=== PATIENT | male | born 1975 ===

== ENCOUNTER 2017-04-26 13:04 | Inpatient (IN) | payer OTHER ==
[2017-04-26] MEDS ORDERED: HYDROmorphone 0.5 mg/0.5 ml ISec ONE (13:12)
[2017-04-26] MEDS ORDERED: HYDROmorphone 1 mg/ml ISec IVP STA (13:20)
[2017-04-26] MEDS ORDERED: Tdap Vaccine 0.5 ml Vial (10-64 yrs) IM ONE ×2 (13:21→13:29)
--- NOTE | 2017-04-26 13:25 | C.PDOC ---
History Of Present Illness 42 year old male presents to the ER for evaluation of left finger injury. 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 Denies any numbness or tingling but states he cannot move the finger. Patient also reports aching in his lower back, and states he may have wrenched it when he grabbed the ladder. Did not fall or hit his head. - HPI Time Seen by Provider: 04/26/17 13:09 Chief Complaint (Nursing): Trauma History Per: Patient History/Exam Limitations: no limitations Injury Occurred (Timing): Just Before Arrival Location Of Injury: Left: Hand, Posterior: Back (lower) Severity: Moderate Past Medical History Reviewed: Historical Data, Nursing Documentation, Vital Signs Vital Signs: Last Vital Signs Temp 97.6 F 04/26/17 15:15 Pulse 74 04/26/17 15:15 Resp 14 04/26/17 15:15 BP 121/57 L 04/26/17 15:15 Pulse Ox 96 04/26/17 15:15 - Medical History PMH: No Chronic Diseases Surgical History: No Surg Hx Family History: States: No Known Family Hx - Social History Hx Tobacco Use: Yes Hx Alcohol Use: No Hx Substance Use: No - Immunization History Hx Tetanus Toxoid Vaccination: No Hx Influenza Vaccination: No Hx Pneumococcal Vaccination: No Review Of Systems Cardiovascular: Negative for: Chest Pain Respiratory: Negative for: Shortness of Breath Gastrointestinal: Negative for: Nausea, Vomiting, Abdominal Pain Musculoskeletal: Positive for: Back Pain, Other (Left finger injury) Neurological: Positive for: Weakness (cannot move finger). Negative for: Numbness (or tingling), Other (head trauma) Physical Exam - Physical Exam Appears: Non-toxic, No Acute Distress Skin: Normal Color, Warm, Dry Head: Atraumatic, Normacephalic Eye(s): bilateral: Normal Inspection, PERRL, EOMI Oral Mucosa: Moist Neck: Normal ROM, Supple Chest: Symmetrical Cardiovascular: Rhythm Regular Respiratory: Normal Breath Sounds, No Accessory Muscle Use Gastrointestinal/Abdominal: Normal Exam, Soft, No Tenderness Back: Normal Inspection, No Vertebral Tenderness, No Paraspinal Tenderness Extremity: Other (Left 5th digit with open wound over the PIP joint, w/ big flap and extension into the joint) Neurological/Psych: Oriented x3, Normal Speech ED Course And Treatment - Laboratory Results Result Diagrams: 04/26/17 14:14 04/26/17 14:14 Lab Interpretation: Normal ECG: Interpreted By Me ECG Rhythm: Sinus Rhythm ECG Interpretation: Normal O2 Sat by Pulse Oximetry: 97 Pulse Ox Interpretation: Normal - Radiology CXR: Interpreted by Me CXR Interpretation: Yes: No Acute Disease Reevaluation Time: 15:24 Reassessment Condition: Improved - Physician Consult Information Time Consulting Physician Contacted: 14:21 Physician Contacted: Josué Claire Outcome Of Conversation: He will see patient and take to OR for clean out and repair. Medical Decision Making Medical Decision Making: Time: 13:20 Initial Plan: * Tdap vaccine given * Dilaudid 1mg IVP * X-Ray of Left 5th Digit * Ancef IVPB * Paged hand specialist on-call Disposition - Disposition Disposition: HOSPITALIZED Disposition Time: 15:24 Condition: STABLE - POA Present On Arrival: None - Clinical Impression Clinical Impression: Open finger fracture - Scribe Statement The provider has reviewed the documentation as recorded by the Ezio Arroyo Provider Attestation: All medical record entries made by the Ezio were at my direction and personally dictated by me. I have reviewed the chart and agree that the record accurately reflects my personal performance of the history, physical exam, medical decision making, and the department course for this patient. I have also personally directed, reviewed, and agree with the discharge instructions and disposition.
--- NOTE | 2017-04-26 13:50 | RAD ---
Left 5th digit radiographs Comparison: None available Indication: Trauma Findings: Soft tissue swelling. Displaced comminuted fracture of the phalanx involving the distal aspect of the proximal 5th and proximal aspect of the mid digits. Suboptimal positioning presumably due to patient condition. The remainder the visualized osseous structures appear intact. Please note external artifact consistent with patient's watch obscures evaluation of the wrist/ distal radius and ulna. Impression: Soft tissue swelling. Displaced comminuted fracture of the 5th phalanx involving the distal aspect of the proximal 5th and proximal aspect of the mid 5th digit. Suboptimal positioning presumably due to patient condition.
[2017-04-26 14:19] LABS: BASO # 0.1 K/uL (0.0-0.2); BASO % 1.1 % (0.0-2.0); EOS # 0.2 K/uL (0.0-0.7); LYMPH # 2.8 K/uL (1.0-4.3); LYMPH % 34.1 % (20.0-40.0); MEAN CELL VOLUME 88.9 fL (80.0-94.0); MEAN CORPUSCULAR HEMOGLOBIN 30.1 pg (27.0-31.0); MEAN CORPUSCULAR HGB CONC 33.8 g/dL (33.0-37.0); MEAN PLATELET VOLUME 8.4 fL (7.2-11.7); MONO # 0.6 K/uL (0.0-0.8); NEUT # 4.6 K/uL (1.8-7.0); NEUT % 55.8 % (50.0-75.0); RBC 4.65 Mil/uL (4.40-5.90); RED CELL DISTRIBUTION WIDTH 13.1 % (11.5-14.5); WHITE BLOOD COUNT 8.3 K/uL (4.8-10.8)
[2017-04-26 14:26] LABS: PROTHROMBIN TIME 11.3 SECONDS (9.7-12.2)
[2017-04-26 14:41] LABS: ALB/GLOB RATIO 1.3 (1.0-2.1); ALBUMIN 4.6 g/dL (3.5-5.0); ALT/SGPT 32 U/L (21-72); AST/SGOT 23 U/L (17-59); BLOOD UREA NITROGEN 14 mg/dL (9-20); CALCIUM 9.4 mg/dl (8.6-10.4); GFR AFRICAN-AMERICAN > 60; GFR NON-AFRICAN AMERICAN > 60
--- NOTE | 2017-04-26 15:07 | RAD ---
HISTORY: pre-op COMPARISON: Chest x-ray performed 12/04/16 TECHNIQUE: Chest, one view. FINDINGS: Examination limited by habitus and hypoinflation. LUNGS: Mild bibasilar atelectasis. Please note that chest x-ray has limited sensitivity for the detection of pulmonary masses. PLEURA: No significant pleural effusion identified. No definite pneumothorax . CARDIOVASCULAR: Heart size appears within normal limits. OSSEOUS STRUCTURES: No acute osseous abnormality identified. VISUALIZED UPPER ABDOMEN: Unremarkable. OTHER FINDINGS: None. IMPRESSION: Hypoinflation. Mild bibasilar atelectasis.
[2017-04-26] MEDS ORDERED: Propofol 10 mg/ml Inj (20 ML) ONE ×2 (16:35→19:04)
[2017-04-26] MEDS ORDERED: Midazolam 2 MG/2 ML VIAL ONE (16:35)
[2017-04-26] MEDS ORDERED: HYDROmorphone 0.5 mg/0.5 ml ISec IVP PRN (16:53)
[2017-04-26] MEDS ORDERED: Bacitracin 50,000 UNIT in Sodium Chloride 0.9% Irrig 1,000 ML IR SCH (17:25)
[2017-04-26] MEDS ORDERED: Lidocaine 1% Inj (20ml) ONE (17:33)
[2017-04-26] MEDS ORDERED: ceFAZolin IV 2 gm in Dextrose 2 GM/50 ML BAG IVPB ONE (17:33)
[2017-04-26] MEDS ORDERED: Bupivacaine HCl 0.25% PF (10 ml) Inj ONE (17:33)
[2017-04-26] MEDS ORDERED: ceFAZolin IV 1 gm in Dextrose 2 GM/100 ML BAG IVPB ONE (17:35)
[2017-04-26] MEDS ORDERED: Neostigmine Methylsulfate 3mg/3ml Syringe IV ONE (19:29)
[2017-04-26] MEDS ORDERED: Lactated Ringer's 1,000 ML IV ONE (19:30)
--- NOTE | 2017-04-26 19:34 | PCM.SURG1 ---
Surgeon's Initial Post Op Note - Surgeon's Notes Surgeon: isidro Atm Technician: Josseline Type of Anesthesia: General Endo Pre-Operative Diagnosis: open L 5th digit PIP fracture Operative Findings: ORIF, debridement, extensor tendon repair Post-Operative Diagnosis: same Operation Performed: ORIF Specimen/Specimens Removed: none Estimated Blood Loss: EBL {In ML}: 10 Date of Surgery/Procedure: 04/26/17 Time of Surgery/Procedure: 17:00
[2017-04-26] MEDS ORDERED: Pneumococcal 23-Valent Vaccine IM ONE (21:36)
[2017-04-26 22:00] VITALS: BP 118/71; PULSE 75; RESP 20; TEMP 97.6; O2SAT 98
--- NOTE | 2017-04-27 09:09 | RAD ---
PROCEDURE: Left Hand Radiographs. HISTORY: s/p ORIF 5th digit COMPARISON: 04/26/2017 FINDINGS: BONES: Normal. No fracturePedis post ORIF comminuted fracture distal 5th proximal phalanx. This radiographic examination is limited and fails to include a frontal view of the 5th digit. Three small pins and a wire are seen to traverse the fracture site. The fracture of the proximal aspect of the middle phalanx has not been surgically repaired. . JOINTS: Normal. No osteoarthritic changes. SOFT TISSUES: Normal. OTHER FINDINGS: None. IMPRESSION: ORIF comminuted fracture distal aspect 5th proximal phalanx.
--- NOTE | 2017-04-27 21:08 | CARD ---
APPROVED REPORT EKG Measurement Heart [id number] <Conclusion> Normal sinus rhythm Early repolarization Normal ECG
--- NOTE | 2017-04-28 23:25 | CON ---
DATE: 04/26/2017. REASON FOR CONSULTATION: Left fifth digit open fracture. HISTORY OF PRESENT ILLNESS: This is a 42-year-old right-hand dominant male who presented to emergency room with trauma to the fifth digit. 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 The patient had gross deformity open wound of the fifth digit and presents to [facility] emergency room for evaluation. The patient was seen in the emergency room and was diagnosed with open fracture of his proximal interphalangeal joint with exposure of bone. The patient was indicated for emergent surgery for wound debridement and fixation. PAST MEDICAL HISTORY: None. PAST SURGICAL HISTORY: None. PHYSICAL EXAMINATION: EXTREMITIES: Left fifth digit, there is open wound in the dorsum of the finger and exposure of the nail in the proximal phalanx. There is hyperflexion deformity at the PIP joint with bone exposed, loss skin tissue on the dorsum of the digit. The patient has good capillary refill. There is also wound contamination with foreign body. X-rays of the hand digit was seen and reviewed show intraarticular fracture of the proximal phalanx at the joint level with displacement and multifragmented fracture. ASSESSMENT: Left fifth digit intraarticular open proximal interphalangeal joint fracture and dislocation. PLAN: Discussion with the patient, recommended emergent surgery for wound washout with debridement, removal of foreign body and repair of injured structures. Risks and benefits were explained. This included but not limited to bleeding, infection, tendon, nerve and vessel injury, instability, chronic pain, potential need for additional surgery in the future. The patient understood the above risks and elected to proceed. He was taken emergently to the operating room for surgery. Josué Claire MD [facility]
--- NOTE | 2017-04-29 00:52 | OP ---
PROCEDURE DATE: 04/26/2017. SURGEON: Josué Claire MD MACHINE ADJUSTER HELPER: resident Suzanne. PREOPERATIVE DIAGNOSES: 1. Left fifth digit open intraarticular proximal phalanx fracture. 2. Left fifth digit open wound, loss of skin. 3. Left fifth digit extensor tendon rupture. POSTOPERATIVE DIAGNOSES: 1. Left fifth digit open intraarticular proximal phalanx fracture. 2. Left fifth digit open wound, loss of skin. 3. Left fifth digit rupture of the central slip of the extensor tendon. 4. Left fifth digit contaminated wound. PROCEDURES: 1. Left fifth digit open reduction internal fixation of proximal interphalangeal joint with Snow wires [id number]. 2. Left fifth digit dorsal rotational skin flap closure, 69845. 3. Left fifth digit central slip repair of extensor tendon, 45490. 4. Left fifth digit open fracture wound debridement including skin, fascia and bone, 06213. 5. Left fifth digit penetrating wound exploration, . ANESTHESIA: General. SPECIMENS: None. BLOOD LOSS: Minimal. COMPLICATIONS: None. DISPOSITION: Stable to recovery room. 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 The patient was indicated for the above surgery. DESCRIPTION OF PROCEDURE: Informed consent was obtained. The patient was brought to the operating room and placed supine on the operating room table. A general anesthesia was given and prophylactic antibiotic. A well padded nonsterile tourniquet was placed on patient's left upper extremity. The entire extremity was then prepped and draped in standard surgical fashion. Time-out was performed. Digital nerve block performed The penetrating wound was explored, skin flaps were raised over the dorsum of the finger. Blunt dissection performed. There was disruption of the extensor tendon with the central slip partial avulsion. The PIP joint was exposed and showed multiple comminuted intra articular fracture fragments with a total of 4 pieces. Also a fracture fragement through phalangeal neck was identified. The fracture fragments were debrided with currette and irrigation.. The soft tissue including the skin flaps, the fascia and tendon were also debrided with curette, rongeur and irrigation. Foreign bodies were removed.The wound was further explored. Neurovascular bundles were identified and remained intact. After thorough debridement and irrigation with Bacitracin solution, primary reduction of the intraarticular fracture fragements was obtained The bone pieces were held together provisionally, directly reduced and then internally fixated with 2.8 Snow wire. The wires were cut short and burried in the bony cortex. The condylar fracture piece was fixated to the shaft of the phalanx again under direct visualization and held in place with 3.5 mm Snow wire. The wire was bent and cut short outside the skin Fluoroscopic images confirmed well aligned, reduced proximal phalanx fracture with acceptable alignment of the congruent PIP joint. Work was then begun on repairing extensor tendon central slip tear. The central slip was repaired back to its insertion using multiple 4-0 Vicryl sutures. The tendon also had a longitudinal split. The split was repaired with 4-0 Vicryl sutures. The joint was closed with local tissue. The wound was then again copiously irrigated. After this, the skin flaps were evaluated. There was loss of skin on the dorsum of the finger. Thus, a rotational skin flap was performed, which aided in covering the exposed bone and tendon. Two rotational skin flaps were performed and the skin was closed with 4-0 nylon interrupted sutures. Prior to the closure of the skin, tourniquet was deflated and hemostasis was obtained with bipolar cautery. Sterile dressing was then applied consisting of Xeroform, 4 x 4, and digital plaster splint was then applied. The patient tolerated the procedure well, was returned to the recovery room in excellent condition. Josué Claire MD [facility]
== END 2017-04-26 22:10 | disposition home or self-care (01) | DRG 464 ==
LOC: C.ER 13:04 → C.9E 16:01 → C.6T 20:06
PROVIDERS: ADMIT Orthopaedic Surgery; ATTEND Orthopaedic Surgery
PROC: 0HXGXZZ Transfer Left Hand Skin, External Approach (ICD-10-PCS; 2017-04-26)
PROC: 0LQ80ZZ Repair Left Hand Tendon, Open Approach (ICD-10-PCS; 2017-04-26)
PROC: 0PBV0ZZ Excision of Left Finger Phalanx, Open Approach (ICD-10-PCS; 2017-04-26)
PROC: 0PSV04Z Reposition Left Finger Phalanx with Internal Fixation Device, Open Approach (ICD-10-PCS; principal; 2017-04-26 17:00)
DX: S62.617B Displaced fracture of proximal phalanx of left little finger, initial encounter for open fracture (principal); S66.327A Laceration of extensor muscle, fascia and tendon of left little finger at wrist and hand level, initial encounter; F17.210 Nicotine dependence, cigarettes, uncomplicated; W20.8XXA Other cause of strike by thrown, projected or falling object, initial encounter